=== PATIENT | female | born 1955 | race Two or more races ===

== ENCOUNTER 2022-12-09 12:22 | Emergency (ER) | payer BC, OTHER ==
[2022-12-09 12:27] VITALS: BP 110/67; PULSE 71; RESP 18; TEMP 97.7; BMI 25.7
[2022-12-09] MEDS ORDERED: ACETAMINOPHEN 325 MG TABLET (FP) PO ONE (14:16)
[2022-12-09] MEDS ORDERED: ACETAMINOPHEN 325 MG TABLET (FP) ONE (14:18)
== END 2022-12-09 14:38 | disposition home or self-care (01) ==
LOC: JERFT 12:22
PROC: 2W3DX1Z Immobilization of Left Lower Arm using Splint (ICD-10-PCS; principal; 2022-12-09)
DX: S62.102A Fracture of unspecified carpal bone, left wrist, initial encounter for closed fracture (principal); M25.532 Pain in left wrist; R22.32 Localized swelling, mass and lump, left upper limb; W20.8XXA Other cause of strike by thrown, projected or falling object, initial encounter
CPT/HCPCS: 73110-TC-LT-FY; 73130-TC-LT-FY; 99283-25

== ENCOUNTER 2024-01-17 22:18 | Emergency (ER) | payer OTHER, BC ==
[2024-01-17] MEDS ORDERED: DEXAMETHASONE SOD PHOSPHATE 10 MG/1 ML VIAL ONE (22:21)
[2024-01-17] MEDS ORDERED: ALBUTEROL SO4 2.5/IPRATROPIUM 0.5 INH SOL 3 ML VIAL.NEB. NEB ONE (22:21)
[2024-01-17] MEDS ORDERED: MAGNESIUM SULFATE IN WATER 2 GM/50 ML IVPB IVPB ONE (22:21)
[2024-01-17 22:25] VITALS: BMI 26.6
[2024-01-17] MEDS: DEXAMETHASONE SOD PHOSPHATE 10 MG/1 ML VIAL IVPUSH ONE (22:30)
[2024-01-17] MEDS: MAGNESIUM SULF 50% (8.12 MEQ/2 ML-1 GM VIAL) IVPB ONE (22:30)
[2024-01-17 22:40] LABS: VENOUS BASE EXCESS -2.2 mmol/L (-2-2); VENOUS O2 SATURATION 66.5 % (70-80); VENOUS PCO2 66.6 mmHg (38-52); VENOUS PH 7.228 (7.310-7.410)
[2024-01-17 22:56] LABS: BASO % 0.7 % (0-2.0); EOS % 3.4 % (0-4.5); HEMATOCRIT 41.9 % (32.4-45.2); HEMOGLOBIN 13.8 GM/dL (10.7-15.3); LYMPH % 41.3 % (8-40); MCH 28.3 pg (25.7-33.7); MCHC 32.9 g/dl (32.0-36.0); MEAN CELL VOLUME 86.1 fl (80-96); MEAN PLT VOLUME 8.2 fl (7.5-11.1); MONO % 7.3 % (3.8-10.2); NEUT % 47.3 % (42.8-82.8); PLATELET COUNT 306 10^3/uL (134-434); RBC 4.87 M/mm3 (3.60-5.2); RDW 14.5 % (11.6-15.6)
[2024-01-17 23:04] LABS: INR 0.99 (0.83-1.09); PROTHROMBIN TIME (PATIENT) 11.2 SEC (9.7-13.0)
[2024-01-17 23:07] LABS: ACTIVATED PTT 33.8 SECONDS (25.2-36.5)
[2024-01-17 23:09] LABS: POTASSIUM 3.8 mmol/L (3.5-5.1)
[2024-01-17 23:11] LABS: CALCIUM 9.2 mg/dL (8.5-10.1)
[2024-01-17 23:12] LABS: ALBUMIN 4.1 g/dl (3.4-5.0); BLOOD UREA NITROGEN 14.4 mg/dL (7-18); MAGNESIUM 2.1 mg/dL (1.8-2.4)
[2024-01-17 23:15] LABS: CREATININE 0.7 mg/dL (0.55-1.3)
[2024-01-17 23:17] LABS: BILIRUBIN,TOTAL 0.4 mg/dL (0.2-1)
[2024-01-18 02:21] VITALS: BP 131/75; PULSE 87; RESP 18
== END 2024-01-18 02:22 | disposition home or self-care (01) ==
LOC: JER 22:18
PROC: 3E033GC Introduction of Other Therapeutic Substance into Peripheral Vein, Percutaneous Approach (ICD-10-PCS; principal; 2024-01-17)
PROC: 3E033GC Introduction of Other Therapeutic Substance into Peripheral Vein, Percutaneous Approach (ICD-10-PCS; 2024-01-17)
DX: J45.901 Unspecified asthma with (acute) exacerbation (principal); R06.02 Shortness of breath; Z20.822 Contact with and (suspected) exposure to COVID-19
CPT/HCPCS: 0241U-QW; 36415; 71045-TC-FY; 80053; 82803; 83735; 84484; 85025; 85610; 85730; 99284-25; J1100

== ENCOUNTER 2024-01-23 20:10 | Emergency (ER) | payer OTHER, BC ==
[2024-01-23 20:14] VITALS: RESP 19; BMI 24.6
[2024-01-23] MEDS ORDERED: ALBUTEROL SO4 2.5/IPRATROPIUM 0.5 INH SOL 3 ML VIAL.NEB. NEB ONE ×2 (21:18→22:54)
[2024-01-23] MEDS ORDERED: methylPREDNISolone NA SUCC 125 MG/2 ML VIAL ONE (21:19)
[2024-01-23] MEDS: ALBUTEROL SO4 2.5/IPRATROPIUM 0.5 INH SOL 3 ML VIAL.NEB. NEB ONE ×2 (21:34→22:58)
[2024-01-23] MEDS: methylPREDNISolone NA SUCC 125 MG/2 ML VIAL IVPUSH ONE (21:34)
[2024-01-23 22:03] LABS: BASO % 0.5 % (0-2.0); EOS % 2.6 % (0-4.5); HEMATOCRIT 36.9 % (32.4-45.2); HEMOGLOBIN 12.7 GM/dL (10.7-15.3); LYMPH % 28.5 % (8-40); MCH 29.8 pg (25.7-33.7); MCHC 34.4 g/dl (32.0-36.0); MEAN CELL VOLUME 86.7 fl (80-96); MEAN PLT VOLUME 8.1 fl (7.5-11.1); MONO % 7.7 % (3.8-10.2); NEUT % 60.7 % (42.8-82.8); PLATELET COUNT 260 10^3/uL (134-434); RBC 4.25 M/mm3 (3.60-5.2); RDW 14.5 % (11.6-15.6); WHITE BLOOD COUNT 8.9 K/mm3 (4.0-10.0)
[2024-01-23 22:08] LABS: POTASSIUM 3.8 mmol/L (3.5-5.1)
[2024-01-23 22:09] LABS: CALCIUM 8.6 mg/dL (8.5-10.1)
[2024-01-23 22:10] LABS: ALBUMIN 3.6 g/dl (3.4-5.0); BLOOD UREA NITROGEN 17.2 mg/dL (7-18)
[2024-01-23 22:14] LABS: CREATININE 0.6 mg/dL (0.55-1.3)
[2024-01-23 22:15] LABS: BILIRUBIN,TOTAL 0.5 mg/dL (0.2-1)
[2024-01-23 22:16] LABS: TOT PROT 6.1 g/dl (6.4-8.2)
[2024-01-23 22:31] LABS: THROAT:GRP A STREP NOT DETECTED (NOTDETECTED)
[2024-01-23 23:06] VITALS: BP 118/63; PULSE 69; TEMP 97.7
== END 2024-01-23 23:28 | disposition home or self-care (01) ==
LOC: JER 20:10
PROC: 3E033GC Introduction of Other Therapeutic Substance into Peripheral Vein, Percutaneous Approach (ICD-10-PCS; principal; 2024-01-23)
PROC: 3E0F7GC Introduction of Other Therapeutic Substance into Respiratory Tract, Via Natural or Artificial Opening (ICD-10-PCS; 2024-01-23)
PROC: 3E0F7GC Introduction of Other Therapeutic Substance into Respiratory Tract, Via Natural or Artificial Opening (ICD-10-PCS; 2024-01-23)
DX: J45.909 Unspecified asthma, uncomplicated (principal); R06.02 Shortness of breath; Z20.822 Contact with and (suspected) exposure to COVID-19
CPT/HCPCS: 0241U-QW; 36415; 71045-TC-FY; 80053; 83735; 84484; 85025; 87651; 93005; 93010; 99285-25